=== PATIENT | female | born 1995 | race Caucasian/White ===

== ENCOUNTER 2016-06-08 09:08 | Emergency (ER) | payer MEDICAID ==
[~2016-06-08] VITALS: Ht 157.5 cm; Wt 60.8 kg
[2016-06-08] MEDS ORDERED: DIPH25CA61 PO (10:09)
[2016-06-08] MEDS ORDERED: DIPHENHYDRAMINE 50 MG/ML, 1ML ONE (10:51)
[2016-06-08] MEDS ORDERED: METOCLOPRAMIDE 5 MG/ML, 2ML ONE (10:51)
[2016-06-08] MEDS ORDERED: METOCLOPRAMIDE 5 MG/ML, 2ML IVPush ONE (11:00)
[2016-06-08] MEDS ORDERED: SODIUM CHLORIDE 0.9% 1,000ML IVBOLUS ONE (11:00)
[2016-06-08] MEDS ORDERED: DIPHENHYDRAMINE 50 MG/ML, 1ML IVPush ONE (11:00)
[2016-06-08] MEDS ORDERED: SODIUM CHLORIDE FLUSH 10ML SYR IVF ONE (11:00)
[2016-06-08 11:17] VITALS: BP 124/74
[2016-06-08 11:26] LABS: HCG UR OBC PASS
== END 2016-06-08 12:07 | disposition home or self-care (01) ==
LOC: ED 10:19
DX: R51 Headache (principal)
CPT/HCPCS: 81025; 96361; 96374; 96375; 99284; J1200; J2765; J7030

== ENCOUNTER 2016-07-01 11:20 | Emergency (ER) | payer MEDICAID ==
[~2016-07-01] VITALS: Ht 152.4 cm; Wt 61.1 kg
[~2016-07-01 11:20] MED LIST: DIPH25CA61 PO
[2016-07-01 15:47] VITALS: BP 104/77
[2016-07-01 16:23] VITALS: BP 107/60
== END 2016-07-01 16:25 | disposition home or self-care (01) ==
LOC: ED 13:35
DX: O20.0 Threatened abortion (principal); O98.811 Other maternal infectious and parasitic diseases complicating pregnancy, first trimester; Z3A.00 Weeks of gestation of pregnancy not specified; B37.3 Candidiasis of vulva and vagina
CPT/HCPCS: 36415; 36430; 76801; 84702; 85025; 86850; 86900; 99285; J2790